=== PATIENT | male | born 1995 | race Caucasian/White ===

== ENCOUNTER 2020-05-03 12:43 | Emergency (ER) | payer MEDICAID ==
[~2020-05-03] VITALS: Ht 167.6 cm; Wt 63.5 kg
--- NOTE | 2020-05-03 13:15 | NUR ---
PT IN WAITING ROOM
[2020-05-03 13:39] VITALS: BP_SYST 121
--- NOTE | 2020-05-03 15:00 | NUR ---
NO ANSWER IN WR
--- NOTE | 2020-05-03 15:05 | NUR ---
NO ANSWER TO BRING TO ER
--- NOTE | 2020-05-03 15:30 | NUR ---
PT ELOPED NO ANSWER
== END 2020-05-03 15:30 | disposition left against medical advice (07) ==
LOC: SED 12:43
DX: R11.10 Vomiting, unspecified (principal); Z53.21 Procedure and treatment not carried out due to patient leaving prior to being seen by health care provider

== ENCOUNTER 2020-05-03 21:46 | Emergency (ER) | payer MEDICAID, SELFPAY ==
[~2020-05-03] VITALS: Ht 167.6 cm; Wt 63.5 kg
[2020-05-03 21:46] VITALS: BP_SYST 139
--- NOTE | 2020-05-03 21:46 | NUR ---
Patient to ER bed 8 to gown for evaluation. Side rails up. Report given to KRISHAN BHAT.
--- NOTE | 2020-05-03 21:50 | NUR ---
# 16 FR In and Out catheter with use of sterile technique. Immediate return of 100 ml orange dark yellow urine noted. Urine sample collected and sent to lab. Pt tolerated procedure well.
--- NOTE | 2020-05-03 21:50 | NUR ---
# 20 gauge angiocath placed to LAC. Use of asceptic technique. Opsite placed over site. Blood return noted. Blood, blood cultures, lactic for lab drawn from site. Flushed with 10 cc of normal saline. No evidence of infiltration noted. Patient tolerated well.
--- NOTE | 2020-05-03 22:15 | NUR ---
JLUIS TO ASSUME CARE, RECEIVED AND IN ROOM, LETHARGIC, ADMITS TO DRUG USE. PT WAS BIB FAMILY FOR ALOC/DRUG USE. NO DISTRESS, RESP UNLABORED, SKIN WARM AND DRY. VSS. PLACED ON MONITOR, IV HL 20 GUAGE LT AC. LABS SENT,
[2020-05-03] MEDS ORDERED: NACL 0.9% 1,000 ML IV ONE (22:30)
--- NOTE | 2020-05-03 22:30 | NUR ---
DR BEST IN TO ASSESS
[2020-05-03 22:44] LABS: BILIRUBIN,URINE 1+ (NEGATIVE); BLOOD, URINE NEGATIVE (NEGATIVE); CLARITY/URINE CLEAR (CLEAR); COLOR,URINE YELLOW (YELLOW); GLUCOSE,URINE NEGATIVE (NEGATIVE); KETONES,URINE 3+ (NEGATIVE); LEUKOCYTE ESTERASE ,URINE NEGATIVE (NEGATIVE); NITRITE, URINE NEGATIVE (NEGATIVE); PH,URINE 6.5 (5.0-8.0); PROTEIN URINE 1+ (NEGATIVE); UROBILINOGEN,URINE 0.2 (0.2-1.0)
[2020-05-03 22:52] LABS: BACTERIA,URINE MODERATE /HPF (None Seen); WBC,URINE 0-3 /HPF (0-3)
[2020-05-03 22:54] LABS: CANNABINOID, URINE POSITIVE (NEG <=50); URINE AMPHETAMINE POSITIVE (NEG <=500)
[2020-05-03 22:55] LABS: BARBITURATE, URINE NEGATIVE (NEG <=200); BENZODIAZEPINE, URINE NEGATIVE (NEG <=150); COCAINE, URINE NEGATIVE (NEG <=150); METHAMPHETAMINES SCREEN,URINE POSITIVE (NEG <=500); OPIATE, URINE POSITIVE (NEG <=100); PHENCYCLIDINE SCREEN,URINE NEGATIVE (NEG <=25); UR TRICYCLIC ANTIDEPRESSANTS NEGATIVE (NEG <=300); URINE METHADONE NEGATIVE (NEG <=200); URINE OXYCODONE SCREEN NEGATIVE (NEG <=100); URINE PROPOXYPHENE SCREEN NEGATIVE (NEG <=300)
[2020-05-03 23:30] LABS: BASOPHILS # (AUTO) 0.2 K/uL (0.0-0.2); BASOPHILS % (AUTO) 1.9 % (0.0-2.0); EOSINOPHILS # (AUTO) 0.1 K/uL (0.0-0.4); EOSINOPHILS % (AUTO) 1.2 % (0.0-4.0); HEMATOCRIT 47.6 % (36-54); HEMOGLOBIN 16.2 g/dL (14.0-18.0); LYMPHOCYTES # (AUTO) 1.8 K/uL (1.0-5.5); MEAN CORPUSCULAR HEMOGLOBIN 31 pg (27-31); MEAN CORPUSCULAR HGB CONC 34 % (32-36); MEAN CORPUSCULAR VOLUME 92 fL (79.0-98.0); MONOCYTES # (AUTO) 0.3 K/uL (0.0-1.0); MONOCYTES % (AUTO) 3.1 % (1.7-9.3); NEUTROPHILS # (AUTO) 7.6 K/uL (1.8-7.7); NEUTROPHILS % (AUTO) 75.8 % (40.0-70.0); PLATELET COUNT (AUTO) 299 K/uL (130-430); RED BLOOD CELL COUNT(AUTO) 5.18 MIL/uL (4.2-6.2); RED CELL DISTRIBUTION WIDTH 13.1 % (9.0-15.0)
--- NOTE | 2020-05-03 23:41 | NUR ---
EASILY AROUSE, SLOW TO RESPOND VERBALLY. PT NOT ANSWERING QUESTION.
[2020-05-03 23:42] LABS: ANION GAP 12 (5-15); CHLORIDE 105 mmol/L (98-107); CREATININE 1.03 mg/dL (0.55-1.30); GLUCOSE 122 mg/dL (70-99); SODIUM SERUM 142 mmol/L (136-145); UREA NITROGEN, BLOOD 17 mg/dL (8-21)
[2020-05-03 23:55] LABS: ALANINE AMINOTRANSFERASE 53 U/L (12-78); ALCOHOL, BLOOD 4 mg/dL (<10); ASPARTATE AMINOTRANSFERASE 17 U/L (10-37); TOTAL BILIRUBIN 0.3 mg/dL (0.0-1.0)
[2020-05-03 23:56] LABS: ACETAMINOPHEN < 1 ug/mL (1-30); GFR AFRICAN AMERICAN 112 mL/min (>90)
--- NOTE | 2020-05-04 00:18 | NUR ---
NO CHANGE IN MENTATION, PT CALM AND COOPERATIVE. RESP TACYPNEIC
--- NOTE | 2020-05-04 00:23 | NUR ---
SBAR REPORT TO RN TO ASSUME CARE
--- NOTE | 2020-05-04 02:33 | NUR ---
Patient is sleeping, vss.
--- NOTE | 2020-05-04 04:03 | NUR ---
Patient woke up and able to answers questions. Patient states " can not remember, what's happen today."
[2020-05-04 05:48] VITALS: BP_SYST 133
--- NOTE | 2020-05-04 05:48 | NUR ---
Patient given written and verbal discharge instructions and verbalizes understanding. ER MD discussed with patient the results and treatment provided. Patient in stable condition. ID arm band removed. IV catheter removed intact and dressing applied, no active bleeding. NO Rx given. Patient educated on pain management and to follow up with PMD. Pain Scale . Opportunity for questions provided and answered.
== END 2020-05-04 05:48 | disposition home or self-care (01) ==
LOC: SED 21:46
DX: T40.1X1A Poisoning by heroin, accidental (unintentional), initial encounter (principal); F11.10 Opioid abuse, uncomplicated; Y92.89 Other specified places as the place of occurrence of the external cause
CPT/HCPCS: 36415; 71045; 80053; 81000; 80307; 82550; 85025; 87086; 93005; 96360; 99285; G0480; G0481; G0482; J7030